=== PATIENT | male | born 1965 | race Caucasian/White ===

== ENCOUNTER 2016-08-10 07:56 | Day surgery (SDC) | payer BC ==
[2016-08-08 11:28] VITALS: BMI 28.7
[~2016-08-10 07:56] MED LIST: LACTATED RINGERS 1,000 ML IV SCH
[2016-08-10] MEDS ORDERED: LIDOCAINE 1% 20 ML VIAL (10MG/ML) FOR IV START INTRADERMA ONE (08:46)
[2016-08-10 08:52] VITALS: RESP 16; TEMP 97.2
[2016-08-10] MEDS ORDERED: PROPOFOL 10 MG/ML 20 ML VIAL IV ONE (09:08)
[2016-08-10] MEDS ORDERED: LIDOCAINE 1% INJ 10MG/ML (20 ML MDV) ONE (09:08)
--- NOTE | 2016-08-10 09:27 | P.PCN ---
Date of Procedure: 08/10/16 Procedure(s) Performed: BRIEF HISTORY: Patient is a 51-year-old pleasant white male, scheduled for an elective colonoscopy as a part of screening for colorectal neoplasia. PROCEDURE PERFORMED: Colonoscopy. PREOPERATIVE DIAGNOSIS: Screening for colon cancer. IV sedation per Anesthesia. PROCEDURE: After informed consent was obtained, the patient, was brought into the endoscopy unit. IV conscious sedation was administered by Anesthesia under continuous monitoring. Digital rectal examination was normal. Initially the Olympus CF-160 flexible video colonoscope was then inserted in the rectum, gradually advanced into the cecum without any difficulty. Careful examination was performed as the scope was gradually being withdrawn. Ileocecal valve and the appendiceal orifice were visualized and appeared normal. Prep was excellent. Mucosa of the cecum, ascending colon, transverse colon, descending colon, sigmoid colon, and rectum appeared normal. Retroflexion was performed in the rectum and no lesions were seen. The patient tolerated the procedure well. IMPRESSION: Normal-appearing colon from rectum to cecum with no evidence of colorectal neoplasia . RECOMMENDATIONS: Findings of this examination were discussed with the patient as well as his family. He was advised to have a repeat screening colonoscopy in 10 years.
[2016-08-10 10:05] VITALS: BP 132/76; PULSE 70
== END 2016-08-10 10:07 | disposition home or self-care (01) ==
LOC: ORWHC2ENDO 07:56
PROVIDERS: ATTEND Internal Medicine Gastroenterology
DX: Z12.11 Encounter for screening for malignant neoplasm of colon (principal); Z88.0 Allergy status to penicillin
CPT/HCPCS: J2001; J2704; G0121; 99153

== ENCOUNTER → 2016-08-13 | Outpatient (CLI) | payer BC ==
--- NOTE | 2016-08-15 08:07 | XR ---
EXAMINATION TYPE: XR shoulder complete LT DATE OF EXAM: 08/13/2016 10:17 AM CLINICAL HISTORY: Left-sided pain for 3 weeks. TECHNIQUE: Three views of the left shoulder are obtained. COMPARISON: None. FINDINGS: There is no acute fracture/dislocation evident in the left shoulder. The acromioclavicula r and glenohumeral joint spaces appear within normal limits. The visualized ribs are intact and unre markable. IMPRESSION: Unremarkable study.
== END | disposition home or self-care (01) ==
LOC: RADXRYALE 10:06
PROVIDERS: ATTEND Family Medicine
DX: M25.512 Pain in left shoulder (principal)

== ENCOUNTER → 2016-09-06 | Outpatient (CLI) | payer BC ==
--- NOTE | 2016-09-07 02:33 | MR ---
EXAMINATION TYPE: MR shoulder LT wo con DATE OF EXAM: 09/06/2016 7:16 PM COMPARISON: NONE HISTORY: Shoulder pain TECHNIQUE: Multiplanar, multisequence imaging of the left shoulder is performed without contrast. FINDINGS: The biceps tendon is intact. Subscapularis tendon is intact. The glenoid fariba appear intact. AC enoc nt space is fairly normal. There is no subacromial impingement. There is minimal spurring at the infe rior glenohumeral joint. There are small foci of increased signal within the supraspinatus tendon saul r the greater tuberosity of the humerus. There is no retraction. I see no bony destructive process. IMPRESSION: There is small intrasubstance tear of the supraspinatus tendon. 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 No fracture.
== END | disposition home or self-care (01) ==
LOC: RADMRIMAIN 18:37
PROVIDERS: ATTEND Family Medicine
DX: M75.102 Unspecified rotator cuff tear or rupture of left shoulder, not specified as traumatic (principal); M19.012 Primary osteoarthritis, left shoulder

== ENCOUNTER → 2018-12-29 | Outpatient (CLI) | payer BC ==
--- NOTE | 2018-12-29 15:22 | XR ---
EXAMINATION TYPE: XR shoulder complete RT DATE OF EXAM: 12/29/2018 CLINICAL HISTORY: 3 views of the right shoulder were obtained TECHNIQUE: Three views of the right shoulder are obtained. COMPARISON: None. FINDINGS: There is no acute fracture/dislocation evident in the right shoulder. The acromioclavicul ar and glenohumeral joint spaces appear within normal limits. The visualized ribs are intact and unr emarkable. IMPRESSION: There is no acute fracture or dislocation in the right shoulder.
== END | disposition home or self-care (01) ==
LOC: RADXRMAIN 15:01
PROVIDERS: ATTEND Orthopaedic Surgery
DX: M25.511 Pain in right shoulder (principal)

== ENCOUNTER → 2024-09-21 | Outpatient (CLI) | payer BC ==
--- NOTE | 2024-09-21 11:35 | US ---
EXAMINATION TYPE: US venous doppler duplex LE BI DATE OF EXAM: 09/21/2024 11:04 AM COMPARISON: NONE CLINICAL INDICATION: Male, 59 years old with history of M79.605 PAIN IN LEFT LEG; Left leg pain. Hist ory of DVT 20 years ago, Pain TECHNIQUE: The lower extremity deep venous system is examined utilizing real time linear array sonog kelli with graded compression, color doppler sonography, and spectral doppler. SIDE PERFORMED: Bilateral FINDINGS: VESSELS IMAGED: Common Femoral Vein Deep Femoral Vein Greater Saphenous Vein * Femoral Vein Popliteal Vein Small Saphenous Vein * Proximal Calf Veins (* superficial vessels) Right Leg: No evidence of DVT, Color Doppler imaging shows patency of the vessels. Spectral waveform s are within normal limits. Left Leg: No evidence of DVT. Superficial thrombus left lower thigh within area of redness, Color Do ppler imaging shows patency of the vessels. Spectral waveforms are within normal limits. IMPRESSION: 1. No ultrasound evidence of deep venous thrombosis bilateral lower extremities. 2. Note is made of superficial venous thrombosis within the area of concern within the left thigh [facility], , 09/21/2024 11:32 AM
== END | disposition home or self-care (01) ==
LOC: RADUSWWP 10:41
PROVIDERS: ATTEND Family Medicine
DX: I80.02 Phlebitis and thrombophlebitis of superficial vessels of left lower extremity (principal); Z86.718 Personal history of other venous thrombosis and embolism
CPT/HCPCS: 93970